=== PATIENT | female | born 1985 | race Two or more races ===

== ENCOUNTER 2020-08-24 15:41 | Emergency (ER) | payer SELFPAY ==
[~2020-08-24] VITALS: Ht 157.5 cm; Wt 82.8 kg
--- NOTE | 2020-08-24 16:04 | NUR ---
photographic laboratory technician: pt from lobby to room 36
--- NOTE | 2020-08-24 16:15 | NUR ---
pt presents to ed with ruq abdominal discomfort and "burning" since monday. Pt denies CP, denies constipation, and urinary problems. NAD noted at this time. Pt is not tender on palpation. Concerned about gall stones. Pt changed into gown. Side rails up, call light in reach.
[2020-08-24 16:56] LABS: MICROSCOPIC NOT IND
[2020-08-24 17:39] LABS: BASOPHILS % (AUTO) 1 % (0-1); EOSINOPHILS % (AUTO) 1 % (1-7); LYMPHOCYTES % (AUTO) 21 % (22-44); MEAN PLATELET VOLUME 7.8 fL (7.4-10.4); MONOCYTES % (AUTO) 6 % (2-9); NEUTROPHILS % (AUTO) 72 % (42-75); PLATELET COUNT 340 x10^3/uL (130-400); RED BLOOD COUNT 4.86 x10^6/uL (3.82-5.3); RED CELL DISTRIBUTION WIDTH 14.9 % (9.6-15.2)
[2020-08-24 17:44] LABS: MD NO
--- NOTE | 2020-08-24 17:45 | NUR ---
Pt resting. No needs at this time. Family at bedside. Updated on POC.
[2020-08-24 17:47] LABS: ALBUMIN 4.1 g/dL (3.4-5.0); ANION GAP 6 mmol/L (5-15); CALCIUM 9.2 mg/dL (8.5-10.1); CHLORIDE 109 mmol/L (98-107)
[2020-08-24 17:52] LABS: ALANINE AMINOTRANSFERASE 26 U/L (12-78); ALKALINE PHOSPHATASE 71 U/L (45-117); BILIRUBIN,TOTAL 0.3 mg/dL (0.2-1.0); CREATININE 0.84 mg/dL (0.55-1.02); TOTAL PROTEIN 8.2 g/dL (6.4-8.2)
--- NOTE | 2020-08-24 18:32 | NUR ---
US at bedside
--- NOTE | 2020-08-24 18:58 | NUR ---
report recieved from arsenio perdomo. pt resting in [facility], no needs at this time
[2020-08-24 19:12] VITALS: BP 124/77
== END 2020-08-24 19:58 | disposition home or self-care (01) ==
LOC: ED 19:52
DX: R10.11 Right upper quadrant pain (principal); R11.0 Nausea
CPT/HCPCS: 36415; 76700; 80053; 81003; 83690; 84703; 85025; 99284